=== PATIENT | female | born 1990 | race Caucasian/White ===

== ENCOUNTER 2025-04-07 21:28 | Emergency (ER) | payer MEDICAID ==
[~2025-04-07] VITALS: Ht 160 cm; Wt 102.6 kg
[2025-04-07 21:57] LABS: MEAN PLATELET VOLUME 8.0 FL (7.4-10.4); RED CELL DISTRIBUTION WIDTH 14.9 % (11.5-14.5)
--- NOTE | 2025-04-07 22:00 | RADIOLOGY REPORT ---
EXAM: DI CHEST,SINGLE VIEW CLINICAL HISTORY: CP TECHNIQUE: Single PA view of the chest WID: COMPARISON: None FINDINGS: Lines and tubes: None Chest: The heart size and pulmonary vasculature is within normal limits. No pleural effusion, pneumothorax, or consolidation. The osseous structures are grossly intact. IMPRESSION: 1. No acute cardiopulmonary abnormality.
[2025-04-07 22:19] LABS: CREATININE 0.88 MG/DL (0.40-0.90); PRO BRAIN NATRIURETIC PEPTIDE 53 PG/ML (0-125); TOTAL CARBON DIOXIDE 26.4 MMOL/L (24-32); eCRCL 75 ML/MIN; eGFR 74 ML/MIN
--- NOTE | 2025-04-07 22:49 | Physician Documentation ---
History of Present Illness ~ General Chief Complaint: Multiple Medical Complaints Stated Complaint: NECK PAIN Time Seen by MD: 22:35 Primary Medical Doctor: PATY History of Present Illness Initial Comments 34 year old female who is actively a 3 month old infant reports that she has had several days of cervical pain L>R, difficulty moving her ne ck/head because of the pain. The pain comes and goes in waves and shoots up her spine. She denies any spinal injury or traumatic event, denies fevers and cold/flu symptoms, had a normal with no preeclampsia, and denies headaches, rashes, and other symptoms. Medication Reconciliation Allergies: Coded Allergies: No Known Allergies (Unverified , 08/05/09) Review of Systems All Other Systems at this time: Reviewed and Negative Physical Exam Physical Exam Vital Signs: RN Vital Signs have been reviewed: Yes, Temperature: 98.1, Source: Oral, Heart Rate: 80, Respiratory Rate: 16, BP: 143/76, Pulse Oximetry: 100, Weight: 102.600 Oxygen Flow Rate: 0 Physical Exam HEENT: PERRL, moist oral mucosa, EOMI Pulmonary: No respiratory distress MSK: no deformity Skin: w/d/i, no rash Neuro: alert, nonfocal Psych: normal affect Progress Results/Orders Results/Orders Orders - JEAN MARIE BARRIENTOS MD Chest,Single View (04/07/25 21:37) Monitor (04/07/25 21:37) Saline Lock (04/07/25 21:37) Oxygen (04/07/25 21:37) Electrocardiogram (04/07/25 21:37) Hs Troponin I W Calculations (04/08/25 00:37) Diazepam Tablet (Valium Tablet) (04/07/25 22:45) Completed Orders - JEAN MARIE BARRIENTOS MD Chest,Single View (04/07/25 21:37) Cbc/Diff (04/07/25 21:37) BMP (04/07/25 21:37) PBNP (04/07/25 21:37) Hs Troponin I W Calculations (04/07/25 21:37) Vital Signs 04/07/25 21:31 Temp 98.1 Pulse 80 Resp 16 B/P (MAP) 143/76 Pulse Ox 100 O2 Flow Rate 0 Laboratory Tests Test 04/07/25 21:45 White Blood Count 6.3 Red Blood Count 3.93 L Hemoglobin 11.2 L Hematocrit 33.1 L Mean Corpuscular Volume 84.4 Mean Corpuscular Hemoglobin 28.6 Mean Corpuscular Hemoglobin Concent 33.9 Red Cell Distribution Width 14.9 H Platelet Count 262 Mean Platelet Volume 8.0 Neutrophils (%) (Auto) 57.7 Lymphocytes (%) (Auto) 29.1 Monocytes (%) (Auto) 8.6 Eosinophils (%) (Auto) 3.3 Basophils (%) (Auto) 1.3 H Neutrophils # (Auto) 3.6 Lymphocytes # (Auto) 1.8 Monocytes # (Auto) 0.5 Eosinophils # (Auto) 0.2 Basophils # (Auto) 0.1 CBC Comment Sodium Level 139 Potassium Level 3.9 Chloride Level 104 Carbon Dioxide Level 26.4 Anion Gap 9 Blood Urea Nitrogen 25 H Creatinine 0.88 Estimated GFR/1.73 m2 74 BUN/Creatinine Ratio 28.4 H Glucose Level 119 H Calcium Level 9.0 Troponin I High Sensitivity < 4 L Troponin I High Sens Percent Delta Troponin I Hi Sens Absolute Change Pro-B-Type Natriuretic Peptide 53 Albumin 4.0 Chemistry Comments Medical Decision Making Findings 34 year old female with apparent torticollis given her symptoms, unremarkable vitals, and intact neuro exam. Provided benzodiazepine, advised use pumped milk tomorrow, return precautions. Differential Diagnosis Ddx = torticollis, muscle strain, muscle spasm, cervical radiculopathy Departure Disposition: HOME / SELF CARE / HOMELESS Impression: Primary Impression: Torticollis Condition: Stable Discharge Instructions: Acute Torticollis, Adult Referrals: NO PRIMARY CARE PROVIDER (PCP) Education Educated: Patient Educated regarding: diagnosis, treatment, prognosis, need for follow up Signature Scribe Signature: . Attestation: . JEAN MARIE BARRIENTOS MD Apr 07, 2025 22:49
[2025-04-07 23:01] VITALS: BP 132/81; PULSE 68; RESP 16; TEMP 98.1; O2SAT 97
--- NOTE | 2025-04-08 05:03 | ELECTROCARDIOGRAPH REPORT ---
[facility] Test Date: 2025-04-07 Test Time: 21:39:20 Pat Name: DIANNA VERA Department: EMERGENCY ROOM Room: Gender: F Palliative Care Nurse: : 1990 Requested By: JEAN MARIE BARRIENTOS Order Number: [id number] Reading MD: Measurements Intervals [place] Rate: 74 P: 41 MS: 137 QRS: 79 QRSD: 104 T: 33 QT: 383 QTc: 425 Interpretive Statements Sinus rhythm Low voltage, precordial leads Please click the below link to view image of tracing.
== END 2025-04-07 23:04 | disposition home or self-care (01) ==
LOC: ER 21:30
DX: M43.6 Torticollis (principal)
CPT/HCPCS: 36415; 71045; 80048; 83880; 84484; 85025; 93005; 99285